=== PATIENT | female | born 1995 | race Caucasian/White ===

== ENCOUNTER 2022-12-05 15:20 | Emergency (ER) | payer OTHER, SELFPAY ==
[2022-12-05 15:29] VITALS: BP 162/99; PULSE 91; RESP 16; O2SAT 98; BMI 34.3
[2022-12-05 15:34] VITALS: BP 162/99; PULSE 95
[2022-12-05] MEDS: EPINEPHrine 1 MG/ML VIAL 0.3 MG IM (15:34)
--- NOTE | 2022-12-05 15:35 | ED_ITS ---
HPI - Allergic Reaction General Chief complaint: Allergic Reaction Stated complaint: Allergic reaction Time Seen by Provider: 12/05/22 15:28 Source: patient Mode of arrival: ambulatory History of Present Illness HPI narrative: Patient was brought here from triage complaining of allergic reaction, throat closing, patient states that she ate the seafood 1 hour ago. complaint: allergic reaction Onset (ago): hour(s) (1) Exposure: food (sea food) Symptoms: difficulty swallowing and other (throat closing) Severity: moderate Treatment prior to arrival: benadryl Related Data Previous Rx's Medication Instructions Recorded epinephrine 0.3 mg/0.3 mL 0.3 mg (0.3 mL) IM Q10M PRN 12/05/22 injection, auto-injector (EpiPen) anaphylaxis #1 ea Allergies Allergy/AdvReac Type Severity Reaction Status Date / Time ketamine Allergy Vomiting Verified 12/05/22 15:28 Review of Systems ENT: Reports other (throat disconfort) Cardiovascular: Cardiovascular: Reports no additional cardiovascular complaints Respiratory: Respiratory: Reports no additional respiratory complaints [facility] Past Medical History Attestation statement: The following information was validated with the patient. [facility] Narrative: denies major medical problems Social History Social History Advance Directives: No Advance Directives Information Provided: Yes Physical Exam ED Vital Signs: Vital Signs - 24 hr 12/05/22 15:29 12/05/22 15:34 Pulse Rate 91 95 Respiratory Rate 16 Blood Pressure 162/99 H 162/99 H Pulse Oximetry 98 Oxygen Delivery Method Room Air BMI result Body Mass Index 34.3 Const General: cooperative Nutritional Appearance: well nourished Orientation/consciousness: patient oriented x3 Limitations: no limitations HENGA Head: Yes normal to inspection Face and sinus: Yes normal facial exam Mouth: Normal oral and palatal mucosa present Throat: Yes posterior oropharynx normal Neck Neck: Yes normal visual inspection Thyroid: Thyroid normal Chest Chest palpation & inspection: normal inspection of the chest Resp Effort & Inspection: normal respiratory effort Auscultation: clear to auscultation bilaterally Percussion: percussion normal Cardio Jugular venous distension: no JVD Rate: regular rate Rhythm: regular rhythm GI Inspection: Yes normal to inspection Palpation (GI): Soft to palpation, not firm and nontender Auscultation: normal bowel sounds General: Yes no CVA tenderness Back/Spine/Pelvis Back: no CVA tenderness Skin General skin exam: no rashes or lesions noted Lesions: no lesions Rashes: no rashes Hair: normal Neuro General: patient oriented x3 Cranial nerves: Yes CN's II-XII intact bilaterally Motor exam (neuro): 5/5 motor strength present throughout Course Reevaluation(s) Reevaluation #1: doing better got epi/decadron Time: 15:48 Reevaluation #2: asyntomatic Time: 17:11 Medications Administered Discontinued Medications Generic Name Dose Route Start Last Admin Trade Name Coco PRN Reason Stop Dose Admin Dexamethasone Sodium Phosphate 10 mg 12/05/22 15:32 12/05/22 15:36 Dexamethasone Sod Phosphate 10 Mg/Ml Vial IVPUSH 12/05/22 15:33 10 mg ONCE ONE Administration Diphenhydramine HCl 25 mg 12/05/22 15:32 12/05/22 15:36 Diphenhydramine Hcl 50 Mg/Ml Vial IVPUSH 12/05/22 15:33 25 mg ONCE ONE Administration Epinephrine 0.3 mg 12/05/22 15:33 12/05/22 15:34 Epinephrine 1 Mg/Ml Vial IM 12/05/22 15:34 0.3 mg STAT STA Administration Famotidine 20 mg 12/05/22 15:32 12/05/22 15:37 Famotidine/Pf 20 Mg/2 Ml Vial IVPUSH 12/05/22 15:33 20 mg ONCE ONE Administration Sodium Chloride 1,000 mls @ 999 mls/hr 12/05/22 15:45 12/05/22 15:41 Ns IVCONT 12/05/22 16:45 999 mls/hr .Q1H1M ANDREA Administration Ondansetron HCl 4 mg 12/05/22 15:34 12/05/22 15:41 Ondansetron Hcl 4 Mg/2 Ml Vial IVPUSH 12/05/22 15:35 4 mg ONCE ONE Administration Medical Decision Making Medical Decision Making MDM Narrative: Present presented with allergic reaction she feels like the throat closing, she received epinephrine, Decadron, Benadryl, Pepcid plan is observation for about a 2 hours Differential Diagnosis Differential Diagnoses: The differential diagnosis associated with the presentation includes Allergic reaction/angioedema Admission/Observation Consideration of admission/observation: Escalation of care including admission/observation considered Consult Healthcare Provider Management of the patient was discussed with: Hospitalist Lab Data MDM Lab Attestation statement: I reviewed the patient's lab results. Critical Care Time Critical Care Time Critical Care Time: Yes Total Critical Care Time: 60 Attestation: IM epi/iv decadron Discharge Plan Discharge Clinical Impression: Allergic reaction Patient Disposition: Home, Self-Care Instructions: General Allergic Reaction (ED) Prescriptions: New epinephrine [EpiPen] 0.3 mg/0.3 mL auto-injector 0.3 mg IM Q10M PRN (Reason: anaphylaxis) Qty: 1 0RF Rx Instructions: for 2 doses
[2022-12-05] MEDS: diphenhydrAMINE HCL 50 MG/ML VIAL 25 MG IVPUSH (15:36)
[2022-12-05] MEDS: dexAMETHasone sod phosphate 10 MG/ML VIAL IVPUSH (15:36)
[2022-12-05] MEDS: Famotidine/PF 20 MG/2 ML VIAL IVPUSH (15:37)
[2022-12-05] MEDS: 0.9 % Sodium Chloride 1,000 ML 999 ML IVCONT (15:41)
[2022-12-05] MEDS: ondansetron HCL 4 MG/2 ML VIAL IVPUSH (15:41)
--- NOTE | 2022-12-05 15:49 | PC.NURSE ---
pt alert and oriented, pt ate squid for the first time and felt like her throat was closing and started to vomit, pt speaking in full clear sentences, clear and patent airway at this time, respirations even and unlabored, ls clear, vs stable and normal sinus on the monitor,
== END 2022-12-05 17:23 | disposition home or self-care (01) ==
PROVIDERS: Emergency Provider Emergency Medicine; PCP Nurse Practitioner Adult Health
DX: T78.40XA Allergy, unspecified, initial encounter (principal); X58.XXXA Exposure to other specified factors, initial encounter
CPT/HCPCS: 99283; J0171; J1100; J1200; J2405